=== PATIENT | female | born 1960 | race Hispanic/Latino ===

== ENCOUNTER 2016-07-10 11:55 | Emergency (ER) | payer OTHER ==
[2016-07-10 12:04] VITALS: BMI 23.4
[2016-07-10 12:08] VITALS: BP 154/92; RESP 16; TEMP 98
[2016-07-10] MEDS ORDERED: Oxycodone/Acetaminophen 5/325 mg Tab PO STA (12:26)
--- NOTE | 2016-07-10 12:32 | ED PDOC ---
Arrival/HPI - General Historian: Patient - General Chief Complaint: Lower Extremity Problem/Injury Time Seen by Provider: 07/10/16 12:20 - History of Present Illness Narrative History of Present Illness (Text): 07/10/16 12:29 55 y/o female, pmh including lt. posterior hsieh cyst, post menopausal, nkda, c/ o lt. hsieh cyst pain x 3 days. PT. stated that she has this pain started about 3 days ago, went to the [facility] which the sonogram report (she has it in the ER) show lt. knee hsieh cyst, discharge home with the meloxicom which stated that it's not improving much. Aching pain, aggravated by the lt. knee stretching, no numbness or tingling, no palpitation, no rash, no abdominal pain, no palpitation, no other medical or psychological complaints. (Kirk Phillips ) Past Medical History - Provider Review Nursing Documentation Reviewed: Yes - Infectious Disease Hx of Infectious Diseases: None - Cardiac Hx Cardiac Disorders: No - Pulmonary Hx Respiratory Disorders: No - Neurological Hx Neurological Disorder: No - HEENT Hx HEENT Disorder: No - Renal Hx Renal Disorder: No - Endocrine/Metabolic Hx Endocrine Disorders: No - Hematological/Oncological Hx Blood Disorders: No - Integumentary Hx Dermatological Disorder: No - Musculoskeletal/Rheumatological Hx Musculoskeletal Disorders: Yes Hx Arthritis: Yes - Gastrointestinal Hx Gastrointestinal Disorders: No - Genitourinary/Gynecological Hx Genitourinary Disorders: No - Psychiatric Hx Psychophysiologic Disorder: Yes Hx Depression: Yes Hx Physical Abuse: No Hx Substance Use: No - Surgical History Hx Orthopedic Surgery: Yes Hx Tubal Ligation: Yes - Anesthesia Hx Anesthesia: No - Suicidal Assessment Feels Threatened In Home Enviroment: No Family/Social History - Physician Review Nursing Documentation Reviewed: Yes Family/Social History: Unknown Family HX Smoking Status: Never Smoked Hx Alcohol Use: No Hx Substance Use: No Hx Substance Use Treatment: No Allergies/Home Meds Allergies/Adverse Reactions: Allergies No Known Allergies Allergy (Verified 07/10/16 12:04) Home Medications: Home Meds Medication Instructions Recorded Confirmed Meloxicam [Meloxicam] 7.5 mg PO BID 07/10/16 07/10/16 Risperidone [Risperdal] 1 tab PO .MORNING 07/10/16 07/10/16 Risperidone [Risperdal] 2 tab PO HS 07/10/16 07/10/16 Review of Systems - Review of Systems Constitutional: absent: Fatigue, Fevers Eyes: absent: Vision Changes ENT: absent: Hearing Changes Respiratory: absent: Cough, Sputum Cardiovascular: absent: Chest Pain, Palpitations Musculoskeletal: Arthralgias. absent: Back Pain, Neck Pain, Joint Swelling, Myalgias Skin: absent: Rash, Pruritis, Skin Lesions Neurological: absent: Headache, Dizziness, Focal Weakness Psychiatric: absent: Anxiety, Depression, Suicidal Ideation Physical Exam Vital Signs Reviewed: Yes Temperature: Afebrile Blood Pressure: Hypertensive Pulse: Tachycardic Respiratory Rate: Normal Appearance: Positive for: Well-Appearing, Non-Toxic, Comfortable Pain Distress: Moderate Mental Status: Positive for: Alert and Oriented X 3 - Systems Exam Head: Present: Atraumatic, Normocephalic Pupils: Present: PERRL Extroacular Muscles: Present: EOMI Conjunctiva: Present: Normal Mouth: Present: Moist Mucous Membranes Neck: Present: Normal Range of Motion Respiratory/Chest: Present: Clear to Auscultation, Good Air Exchange. No: Respiratory Distress, Accessory Muscle Use Cardiovascular: Present: Regular Rate and Rhythm, Normal S1, S2. No: Murmurs Abdomen: Present: Normal Bowel Sounds. No: Tenderness, Distention, Peritoneal Signs Back: Present: Normal Inspection Upper Extremity: Present: Normal Inspection. No: Cyanosis, Edema Lower Extremity: Present: Normal Inspection, Other (Lt. lower extremity: no tenderness or swelling, mild +ttp on the posterior aspect of the popliteal fossa , negative ashley and galicia signs, no joint laxity, FROM without limitation, sensation intact, motor 5/5, +DPPT pulses, capillary refill< 2 seconds, neurovascular intact. ). No: Edema Neurological: Present: GCS=15, CN II-XII Intact, Speech Normal Skin: Present: Warm, Dry, Normal Color. No: Rashes Psychiatric: Present: Alert, Oriented x 3, Normal Insight, Normal Concentration Medical Decision Making ED Course and Treatment: 07/10/16 12:33 -Toradol IM/percocet -Lt. knee janice wrap and crutches, no indication of the repeat DVT study as the source of the problem already diagnosed as lt. knee hsieh cyst. -I reviewed [facility] show the patient has over 2 times of narcotic prescription and the patient will need pain management or orthopedic. -Discharge home with naproxen, discontinue the meloxicom, janice wrap, crutches, please see your own orthopedic Dr. Royce Sanchez and your own pmd within 2 days, return to the ER for any new or worsening signs or symptoms. (Kirk Phillips) I was available for consultation during PA evaluation. The chart was reviewed by me, and I agree with disposition. The documented history was done by the physician puff iron operator. The documented physical exam was done by the physician puff iron operator. The documented procedures were done by the physician puff iron operator. ( Tyrese Gonsalez) - Medication Orders Current Medication Orders: Discontinued Medications Ketorolac Tromethamine (Toradol) 60 mg IM STAT STA Stop: 07/10/16 12:27 Last Admin: 07/10/16 12:39 Dose: 60 mg Oxycodone/Acetaminophen (Percocet 5/325 Mg Tab) 1 tab PO STAT STA Stop: 07/10/16 12:27 Last Admin: 07/10/16 12:39 Dose: 1 tab - PA / CERTIFIED EXECUTIVE CHEF / Resident Statement / has reviewed & agrees with the documentation as recorded. Disposition/Present on Arrival - Present on Arrival Any Indicators Present on Arrival: No History of DVT/PE: No History of Uncontrolled Diabetes: No Urinary Catheter: No History of Decub. Ulcer: No History Surgical Site Infection Following: None - Disposition Have Diagnosis and Disposition been Completed?: Yes Disposition Time: 12:36 Patient Plan: Discharge - Disposition Diagnosis: Hsieh's cyst of knee Disposition: HOME/ ROUTINE Condition: GOOD Additional Instructions: Discharge home with naproxen, discontinue the meloxicom, janice wrap, crutches, please see your own orthopedic Dr. Royce Sanchez and your own pmd within 2 days, return to the ER for any new or worsening signs or symptoms. Prescriptions: Naproxen 500 mg PO BID PRN #20 tab PRN Reason: Other Referrals: Royce Mccord DO [Staff Provider] - Follow up with primary [facility] [place] [Outside] - Follow up with primary Forms: [facility] [employer] ([place]), WORK NOTE
[2016-07-10 13:19] VITALS: PULSE 92; O2SAT 98
== END 2016-07-10 13:10 | disposition home or self-care (01) ==
LOC: ED 11:55
DX: M71.22 Synovial cyst of popliteal space [Baker], left knee (principal)
CPT/HCPCS: 96372; 99283; J1885

== ENCOUNTER 2016-07-20 16:31 | Emergency (ER) | payer OTHER ==
[2016-07-20 16:42] VITALS: BMI 25.0
--- NOTE | 2016-07-20 17:28 | ED PDOC ---
Arrival/HPI - General Historian: Patient <Carissa Willingham - Last Filed: 07/21/16 01:19> <Dwight Henson - Last Filed: 07/21/16 05:44> <Julio Leal - Last Filed: 07/21/16 18:59> <WilliejoeyChin - Last Filed: 07/25/16 21:09> - General Chief Complaint: Psychiatric Evaluation Time Seen by Provider: 07/20/16 16:48 - History of Present Illness Narrative History of Present Illness (Text): 07/20/16 17:26 55yr old female presents today sent in by [facility] for depression , anxiety, irritability and bizarre behavior and delusional thinking. pt denies cp or sob. no vomiting/diarrhea. admits to feeling depressed. states she is angry that she has to be in the hospital. pt denies SI at present time. no dizziness or weakness. Pt c/o chronic left leg pain behind the knee. denies trauma or injury. pt states she has known "lump" behind the knee. denies any other complaints. (Carissa Willingham) Past Medical History - Provider Review Nursing Documentation Reviewed: Yes - Travel History Have you recently traveled outside [place] w/in the past 3 mons?: No - Infectious Disease Hx of Infectious Diseases: None - Tetanus Immunization Tetanus Immunization: Unknown - Cardiac Hx Cardiac Disorders: No - Pulmonary Hx Respiratory Disorders: No - Neurological Hx Neurological Disorder: No - HEENT Hx HEENT Disorder: No - Renal Hx Renal Disorder: No - Endocrine/Metabolic Hx Endocrine Disorders: No - Hematological/Oncological Hx Blood Disorders: No - Integumentary Hx Dermatological Disorder: No - Musculoskeletal/Rheumatological Hx Musculoskeletal Disorders: Yes Hx Arthritis: Yes - Gastrointestinal Hx Gastrointestinal Disorders: No - Genitourinary/Gynecological Hx Genitourinary Disorders: No - Psychiatric Hx Psychophysiologic Disorder: Yes Hx Depression: Yes Hx Physical Abuse: No Hx Substance Use: No - Surgical History Hx Orthopedic Surgery: Yes Hx Tubal Ligation: Yes - Anesthesia Hx Anesthesia: No - Suicidal Assessment Feels Threatened In Home Enviroment: No <Carissa Willingham - Last Filed: 07/21/16 01:19> Family/Social History - Physician Review Nursing Documentation Reviewed: Yes Family/Social History: Unknown Family HX Smoking Status: Never Smoked Hx Alcohol Use: No Hx Substance Use: No Hx Substance Use Treatment: No <Carissa Willingham - Last Filed: 07/21/16 01:19> Allergies/Home Meds <Carissa Willingham - Last Filed: 07/21/16 01:19> <SixtoDwight - Last Filed: 07/21/16 05:44> <Julio Leal - Last Filed: 07/21/16 18:59> <Chin Adkins - Last Filed: 07/25/16 21:09> Allergies/Adverse Reactions: Allergies No Known Allergies Allergy (Verified 07/20/16 16:42) Home Medications: Home Meds Medication Instructions Recorded Confirmed Unobtainable 07/20/16 07/20/16 Review of Systems - Review of Systems Constitutional: absent: Fatigue, Fevers Respiratory: absent: SOB, Cough Cardiovascular: absent: Chest Pain, Palpitations Gastrointestinal: absent: Abdominal Pain, Nausea, Vomiting Genitourinary Female: absent: Dysuria Musculoskeletal: Arthralgias (left leg pain) Skin: absent: Rash, Pruritis Neurological: absent: Headache, Dizziness <Carissa Willingham - Last Filed: 07/21/16 01:19> Physical Exam Vital Signs Reviewed: Yes Temperature: Afebrile Blood Pressure: Normal Pulse: Regular Respiratory Rate: Normal Appearance: Positive for: Well-Appearing, Non-Toxic, Comfortable Pain Distress: None Mental Status: Positive for: Alert and Oriented X 3, Agitated - Systems Exam Head: Present: Atraumatic Mouth: Present: Moist Mucous Membranes Neck: Present: Normal Range of Motion Respiratory/Chest: Present: Clear to Auscultation, Good Air Exchange. No: Respiratory Distress, Accessory Muscle Use Cardiovascular: Present: Regular Rate and Rhythm, Normal S1, S2. No: Murmurs Abdomen: Present: Normal Bowel Sounds. No: Tenderness, Distention, Peritoneal Signs Upper Extremity: Present: Normal Inspection Lower Extremity: Present: NORMAL PULSES, Normal ROM, Neurovascularly Intact, Capillary Refill < 2 s. No: CALF TENDERNESS, Tenderness, Erythema, Deformity Neurological: Present: GCS=15, Speech Normal Skin: Present: Warm, Dry, Normal Color. No: Rashes Psychiatric: Present: Alert, Oriented x 3 <Carissa Willingham - Last Filed: 07/21/16 01:19> Medical Decision Making <Carissa Willingham - Last Filed: 07/21/16 01:19> - RAD Interpretation Solar Electric/Photovoltaic Installer: ED Physician <Dwight Henson - Last Filed: 07/21/16 05:44> <Julio Leal - Last Filed: 07/21/16 18:59> <Chin Adkins - Last Filed: 07/25/16 21:09> ED Course and Treatment: 07/20/16 17:33 Patient is nontoxic well-appearing in no distress vital signs are stable. CBC hgb:9.9 CMP WNL Tylenol WNL Salicylate WNL Alcohol level WNL Urine drug screen: + benzos venous duplex; left leg; no DVT; + bakers cyst. UA; wnl cxr: wnl ekg normal sinus rhythm at [address] elevations normal intervals pt is medically cleared for PES evaluation/admission and transfer. Patient was seen and evaluated by PES screener: wen; pt will need [facility] screening. patients family member spoke with patient and patient has decided to sign voluntarily; i spoke with clay PES screener; she will see patient at bedside. clay saw patient at bedside; pt wants to be transferred psychiatrically to another facility preferably [facility]. (Carissa Willingham) 07/21/16 18:59 Patient ambulatory. No respiratory distress. Cooperative. Alert. No pain expressed. Has been reassessed by PES, awaiting transfer and disposition pending approval for transfer to facility of patient's request. (Julio Leal) - Lab Interpretations Lab Results: 07/20/16 17:00 07/20/16 17:00 Lab Results 07/20/16 17:00: WBC 5.5, RBC 3.71, Hgb 9.9 L, Hct 30.1 L, MCV 81.1, MCH 26.7, MCHC 32.9, RDW 13.8, Plt Count 346, MPV 11.0, Gran % 58.7, Lymph % (Auto) 31.6, [place] % (Auto) 8.0 H, Eos % (Auto) 1.5, Baso % (Auto) 0.2, Gran # 3.22, Lymph # 1.7, [place] # 0.4, Eos # 0.1, Baso # 0.01 07/20/16 17:00: Alcohol, Quantitative < 10 05/22/17 17:00: Salicylates < 1 L, Acetaminophen < 10.0 L 07/20/16 17:00: Urine Opiates Screen Negative, Urine Methadone Screen Negative, Ur Barbiturates Screen Negative, Ur Phencyclidine Scrn Negative, Ur Amphetamines Screen Negative, U Benzodiazepines Scrn Positive H, U Oth Cocaine Metabols Negative, U Cannabinoids Screen Negative 07/20/16 17:00: Sodium 138, Potassium 3.8, Chloride 101, Carbon Dioxide 28, Anion Gap 13, BUN 14, Creatinine 0.6, Est GFR ( Amer) > 60, Est GFR (Non- Af Amer) > 60, Random Glucose 93, Calcium 8.9, Total Bilirubin 0.4, AST 19, ALT 21, Alkaline Phosphatase 96, Total Protein 7.0, Albumin 3.5, Globulin 3.5, Albumin/Globulin Ratio 1.0 L 07/20/16 17:00: Urine Color Yellow, Urine Appearance Sl cloudy, Urine pH 8.0, Ur Specific [place] 1.020, Urine Protein Negative, Urine Glucose (UA) Negative, Urine Ketones Negative, Urine Blood Negative, Urine Nitrate Negative, Urine Bilirubin Negative, Urine Urobilinogen 1.0 H, Ur Leukocyte Esterase Negative, Urine HCG, Qual Negative - RAD Interpretation Narrative RAD Interpretations (Text): 07/21/16 05:44 CXR- No acute process (Dwight Henson) Radiology Orders: 07/20/16 16:48 CHEST PORTABLE [RAD] Stat 07/20/16 17:31 DUPLEX LOWER EXTRM VEIN LEFT [US] Stat - Medication Orders Current Medication Orders: Discontinued Medications Acetaminophen (Tylenol 325mg Tab) 650 mg PO STAT STA Stop: 07/22/16 02:59 Last Admin: 07/22/16 03:14 Dose: 650 mg Risperidone (Risperdal Tab) 1 mg PO STAT STA PRN Reason: Protocol Stop: 07/21/16 22:18 Last Admin: 07/21/16 22:24 Dose: 1 mg Risperidone (Risperdal Tab) 1 mg PO [facility] CAROLINE PRN Reason: Protocol Last Admin: 07/22/16 10:28 Dose: 1 mg - PA / MEASURING MACHINE TENDER / Resident Statement SIOMARA has reviewed & agrees with the documentation as recorded. SIOMARA has examined the patient and agrees with the treatment plan. <Dwight Henson - Last Filed: 07/21/16 05:44> Disposition/Present on Arrival - Present on Arrival Any Indicators Present on Arrival: No History of DVT/PE: No History of Uncontrolled Diabetes: No Urinary Catheter: No History of Decub. Ulcer: No History Surgical Site Infection Following: None - Disposition Have Diagnosis and Disposition been Completed?: Yes Disposition Time: : <Carissa Willingham - Last Filed: 07/21/16 01:19> <Dwight Henson - Last Filed: 07/21/16 05:44> <Julio Leal - Last Filed: 07/21/16 18:59> <Chin Adkins - Last Filed: 07/25/16 21:09> - Disposition Diagnosis: Depression Disposition: AGAINST MEDICAL ADVICE Condition: FAIR Referrals: PCP,NO [Primary Care Provider] - Follow up with primary Karoline Arguelles MD [Staff Provider] - Follow up with primary
[2016-07-20 17:38] LABS: ADD MANUAL DIFF? NO
[2016-07-20 17:50] LABS: URINE BILIRUBIN NEGATIVE (NEGATIVE); URINE BLOOD NEGATIVE (NEGATIVE); URINE GLUCOSE (UA) NEGATIVE (NEGATIVE); URINE KETONE NEGATIVE (NEGATIVE); URINE LEUKOCYTE ESTERASE NEGATIVE Leu/uL (NEGATIVE); URINE PROTEIN NEGATIVE mg/dL (<30 mg/dL)
[2016-07-20 17:54] LABS: BASO # 0.01 K/mm3 (0.0-2.0); BASO % 0.2 % (0.0-3.0); EOS # 0.1 (0.0-0.7); EOS % 1.5 % (1.5-5.0); GRAN # 3.22 (1.4-6.5); GRAN % 58.7 % (50.0-68.0); HEMATOCRIT 30.1 % (36.0-48.0); LYMPH # 1.7 (1.2-3.4); LYMPH % 31.6 % (22.0-35.0); MEAN CELL VOLUME 81.1 fL (80.0-105.0); MEAN CORPUSCULAR HEMOGLOBIN 26.7 pg (25.0-35.0); MEAN CORPUSCULAR HGB CONC 32.9 g/dl (31.0-37.0); MONO # 0.4 (0.1-0.6); PLATELET COUNT 346 10^3/uL (120.0-450.0); RED CELL DISTRIBUTION WIDTH 13.8 % (11.5-14.5); WHITE BLOOD COUNT 5.5 10^3/ul (4.5-11.0)
[2016-07-20 17:58] LABS: URINE APPEARANCE SL CLOUDY (CLEAR); URINE COLOR YELLOW (YELLOW)
[2016-07-20 18:14] LABS: ALKALINE PHOSPHATASE 96 U/L (38-133); ALT/SGPT 21 U/L (7-56); AST/SGOT 19 U/L (15-39); BILIRUBIN,TOTAL 0.4 mg/dL (0.2-1.3); BLOOD UREA NITROGEN 14 mg/dL (7-21); CALCIUM 8.9 mg/dL (8.4-10.5); CARBON DIOXIDE 28 mmol/L (21-33); CHLORIDE 101 mmol/L (98-107); GFR AFRICAN-AMERICAN > 60; GLUCOSE,RANDOM 93 mg/dL (70-110); POTASSIUM 3.8 mmol/L (3.6-5.0); SODIUM 138 mmol/L (132-148)
--- NOTE | 2016-07-20 20:03 | CARD ---
APPROVED REPORT EKG Measurement Heart [id number] <Conclusion> Normal sinus rhythm Minimal voltage criteria for LVH, may be normal variant Borderline ECG
--- NOTE | 2016-07-21 08:16 | RAD ---
HISTORY: pes eval COMPARISON: 03/14/2012 FINDINGS: LUNGS: No active pulmonary disease. PLEURA: No significant pleural effusion identified, no pneumothorax apparent. CARDIOVASCULAR: Normal. OSSEOUS STRUCTURES: No significant abnormalities. VISUALIZED UPPER ABDOMEN: Normal. OTHER FINDINGS: None. IMPRESSION: No active disease.
--- NOTE | 2016-07-21 09:06 | US ---
PROCEDURE: Left lower extremity venous US HISTORY: Leg pain and swelling. Evaluate for DVT. PHYSICIAN(S): Frank Arenas MD. TECHNIQUE: Duplex sonography and color-flow Doppler with graded compression were used to evaluate the deep venous system of the left lower extremity. FINDINGS: The visualized deep venous system of the left lower extremity is sonographically normal and compressible. Normal wave forms and augmentation are seen. There is no sonographic evidence for deep venous thrombosis in the visualized segments of the left lower extremity. There is a large complex 2.9 x 7.1 cm lobulated fluid collection left popliteal fossa, consistent with a Hsieh cyst. IMPRESSION: 1. No sonographic evidence for deep venous thrombosis in the visualized segments of the left lower extremity.
--- NOTE | 2016-07-22 12:17 | CON ---
DATE: 07/22/2016 HISTORY OF PRESENT ILLNESS: Shortly, the patient is a 55-year-old female with previous psychiatric h istory of bipolar disorder versus schizoaffective disorder, multiple admissions into [facility] under involuntary commitment. The patient was brought in for evaluation of bizarre and di sorganized behavior. The patient was evaluated by [facility] which was recommended b y this teletypewriter installer yesterday. The patient was accepted and at present moment, the patient is waiting for a bed to be available. The patient got 1 dose of Risperdal 1 mg yesterday. The patient was seen tonola prajapati at the morning time in the Emergency Room. The patient presented to be calm. The patient had tho ught process to be disorganized. The patient had feeling she has stolen some police report which is not true. The patient presented to be disorganized, rapid speech and needs further evaluation and st abilization. The patient reported that she was on Risperdal before and she wants to continue that me dication. As per history, the patient had multiple admissions into [facility] and mo st recent was in 04/2016. VITAL SIGNS: This teletypewriter installer reviewed vital signs. Vital signs seem to be stable. Temperature 98, puls e is 84, blood pressure 138/79, respirations 16, oxygen saturation is 98. MEDICATIONS: Reviewed. The patient got Risperdal 1 mg yesterday at the evening time, slept well and this teletypewriter installer will initiate Risperdal 1 mg twice a day as of now. LABORATORY DATA: Reviewed. Chemistry reviewed. Urine reviewed. Toxicology positive for benzodiaze pines. MENTAL STATUS EXAMINATION: The patient presented to be alert, appears to be confused. Speech was ov er-productive, rambling. Mood described "I feel better." Affect was constricted. Thought process i s disorganized, tangential and circumstantial. Thought content: The patient obviously psychotic, di sorganized. Insight and judgment are very limited. Impulses are not predictable. IMPRESSION: History of schizoaffective disorder versus bipolar disorder with psychotic symptoms. PLAN: The patient was screened by [facility] and waiting for bed to be available to be transferred there. Risperdal was started at 1 mg twice a day. The patient allowed to talk to her sister who is next to the patient. Sister was appreciative and she said patient was on Risperdal be fore and she tolerated that medication well. The patient and family are aware about plan for now, wa s appreciative and all questions were answered. We will follow up and advise accordingly. Karoline Arguelles MD cc: [id number] TT: 07/22/2016 12:16:26 Confirmation # [id number] Dictation # [id number] tn
[2016-07-22 17:11] VITALS: BP 115/54; PULSE 78; RESP 18; TEMP 98.2; O2SAT 98
== END 2016-07-22 17:15 | disposition left against medical advice (07) ==
LOC: ED 16:31
DX: F32.9 Major depressive disorder, single episode, unspecified (principal); F41.9 Anxiety disorder, unspecified

== ENCOUNTER 2016-10-15 11:32 | Emergency (ER) | payer OTHER ==
--- NOTE | 2016-10-15 11:55 | ED PDOC ---
Arrival/HPI - General Time Seen by Provider: 10/15/16 11:54 Historian: Patient - History of Present Illness Narrative History of Present Illness (Text): 10/15/16 11:55 55 y/o female, pmh including rich cyst, nkda, c/o rt. posterior knee and calf pain started this morning with no fall or trauma. Pt. stated that she feels the rt. posterior calf pain that radiating to the rt. posterior knee, no redness , no fever or chills, no numbness or tingling, no calf pain, no urinary symptoms , no other medical or psychological complaints. Past Medical History - Provider Review Nursing Documentation Reviewed: Yes - Infectious Disease Hx of Infectious Diseases: None - Tetanus Immunization Tetanus Immunization: Unknown - Cardiac Hx Cardiac Disorders: No - Pulmonary Hx Respiratory Disorders: No - Neurological Hx Neurological Disorder: No - HEENT Hx HEENT Disorder: No - Renal Hx Renal Disorder: No - Endocrine/Metabolic Hx Endocrine Disorders: No - Hematological/Oncological Hx Blood Disorders: No - Integumentary Hx Dermatological Disorder: No - Musculoskeletal/Rheumatological Hx Musculoskeletal Disorders: Yes Hx Arthritis: Yes - Gastrointestinal Hx Gastrointestinal Disorders: No - Genitourinary/Gynecological Hx Genitourinary Disorders: No - Psychiatric Hx Psychophysiologic Disorder: Yes Hx Depression: Yes Hx Physical Abuse: No Hx Substance Use: No - Surgical History Hx Orthopedic Surgery: Yes Hx Tubal Ligation: Yes - Anesthesia Hx Anesthesia: No - Suicidal Assessment Feels Threatened In Home Enviroment: No Family/Social History - Physician Review Nursing Documentation Reviewed: Yes Family/Social History: Unknown Family HX Smoking Status: Never Smoked Hx Alcohol Use: No Hx Substance Use: No Hx Substance Use Treatment: No Allergies/Home Meds Allergies/Adverse Reactions: Allergies No Known Allergies Allergy (Verified 07/20/16 16:42) Review of Systems - Review of Systems Constitutional: absent: Fatigue, Fevers Eyes: absent: Vision Changes ENT: absent: Hearing Changes Respiratory: absent: SOB, Cough Cardiovascular: absent: Chest Pain Gastrointestinal: absent: Abdominal Pain, Nausea, Vomiting Musculoskeletal: Arthralgias, Myalgias Skin: absent: Rash, Pruritis, Skin Lesions Neurological: absent: Headache Physical Exam Vital Signs Reviewed: Yes Vital Signs Temp Pulse Resp BP Pulse Ox 10/15/16 13:09 98.7 F 81 19 109/73 100 10/15/16 12:07 98.2 F 92 H 18 99/68 L 98 Temperature: Afebrile Pulse: Regular Respiratory Rate: Normal Appearance: Positive for: Well-Appearing, Non-Toxic, Comfortable Pain Distress: Moderate Mental Status: Positive for: Alert and Oriented X 3 - Systems Exam Head: Present: Atraumatic, Normocephalic Pupils: Present: PERRL Extroacular Muscles: Present: EOMI Conjunctiva: Present: Normal Mouth: Present: Moist Mucous Membranes Neck: Present: Normal Range of Motion Respiratory/Chest: Present: Clear to Auscultation, Good Air Exchange. No: Respiratory Distress, Accessory Muscle Use Cardiovascular: Present: Regular Rate and Rhythm, Normal S1, S2. No: Murmurs Abdomen: Present: Normal Bowel Sounds. No: Tenderness, Distention, Peritoneal Signs Back: Present: Normal Inspection Upper Extremity: Present: Normal Inspection. No: Cyanosis, Edema Lower Extremity: Present: Normal Inspection, Other (RLE: mild +ttp on the proximal calf with mild swelling, negative ashley and galicia signs, FROM without limitation, sensation intact, motor 5/5, +DPPT pulses, capillary refill < 2 seconds, neurovascular intact. ). No: Edema Neurological: Present: GCS=15, Speech Normal, Motor Func Grossly Intact, Gait Normal, Memory Normal Skin: Present: Warm, Dry, Normal Color. No: Rashes Psychiatric: Present: Alert, Oriented x 3, Normal Insight, Normal Concentration Medical Decision Making ED Course and Treatment: 10/15/16 12:32 -RLE venuous doppler -Indocin 10/15/16 13:59 -RLE Venuous Doppler: as per preliminary, no acute DVT -I offered further laboratory and radiology testing, pt. declined and wanna follow up with her own pmd. -janice wrap applied with neurovascular intact. I suggest non-weight bearing with crutches/partial weight bearing with cane, pt. refused. -Discharge home with indomethacin, janice wrap, follow up with your own pmd and orthopedic within 2 days, return to the ER for any new or worsening signs or symptoms. - RAD Interpretation Radiology Orders: 10/15/16 12:29 DUPLEX LOWER EXTRM VEIN RIGHT [US] Stat RLE Venuous Doppler: as per preliminary, no acute DVT Kennel Hand: Radiologist - Medication Orders Current Medication Orders: Discontinued Medications Indomethacin (Indocin) 50 mg PO STAT STA Stop: 10/15/16 12:31 Last Admin: 10/15/16 12:56 Dose: 50 mg - PA / CAMPAIGN COORDINATOR / Resident Statement MD/DO has reviewed & agrees with the documentation as recorded. Disposition/Present on Arrival - Present on Arrival Any Indicators Present on Arrival: No History of DVT/PE: No History of Uncontrolled Diabetes: No Urinary Catheter: No History of Decub. Ulcer: No History Surgical Site Infection Following: None - Disposition Have Diagnosis and Disposition been Completed?: Yes Diagnosis: Calf pain, Arthralgia Disposition: HOME/ ROUTINE Disposition Time: 12:32 Patient Plan: Discharge Condition: GOOD Additional Instructions: -Discharge home with indomethacin, janice wrap, follow up with your own pmd and orthopedic within 2 days, return to the ER for any new or worsening signs or symptoms. Prescriptions: Indomethacin [Indocin] 50 mg PO TID PRN #30 cap PRN Reason: Other Referrals: Kimberly HORTON,Yo Schreiber MD [Primary Care Provider] - Follow up with primary Nathanael Yen MD [Staff Provider] - Follow up with primary Forms: WORK NOTE
[2016-10-15 12:05] VITALS: BMI 25.4
[2016-10-15 13:10] VITALS: BP 109/73; PULSE 81; RESP 19; TEMP 98.7; O2SAT 100
--- NOTE | 2016-10-15 14:20 | US ---
PROCEDURE: Right lower extremity venous US HISTORY: Leg pain and swelling. Evaluate for DVT. PHYSICIAN(S): Frank Arenas M.D. TECHNIQUE: Duplex sonography and color-flow Doppler with graded compression were used to evaluate the deep venous system of the right lower extremity. FINDINGS: The visualized deep venous system of the right lower extremity is sonographically normal and compressible. Normal waveforms and augmentation are seen. There is no sonographic evidence for deep venous thrombosis in the visualized segments of the right lower extremity. IMPRESSION: 1. No sonographic evidence for deep venous thrombosis in the visualized segments of the right lower extremity.
== END 2016-10-15 14:10 | disposition home or self-care (01) ==
LOC: ED 11:32
DX: M79.661 Pain in right lower leg (principal); M25.561 Pain in right knee

== ENCOUNTER 2018-05-03 08:57 | Inpatient (IN) | payer OTHER ==
[2018-05-03 09:05] VITALS: BMI 27.3
[2018-05-03] MEDS ORDERED: Morphine 2 mg/ml ISec IVP STA ×2 (09:40→11:29)
[2018-05-03] MEDS ORDERED: Morphine 2 mg/ml ISec IM STA (09:50)
--- NOTE | 2018-05-03 10:48 | RAD ---
Date of service: 05/03/2018 PROCEDURE: Right Ankle Radiographs. HISTORY: ankle pain/deformity s/p fall COMPARISON: None available. FINDINGS: BONES: Vertical nondisplaced fracture medial malleolus/distal tibia. Posterior malleolar fracture also noted, mildly displaced. Oblique distal fibular fracture noted above the level of the plafond and. JOINTS: Normal. No osteoarthritis. Ankle mortise maintained. Talar dome intact SOFT TISSUES: Normal. OTHER FINDINGS: None. IMPRESSION: Medial malleolar and posterior malleolar fractures. Distal fibular fracture.
--- NOTE | 2018-05-03 11:20 | ED PDOC ---
Arrival/HPI - General Chief Complaint: Lower Extremity Problem/Injury Time Seen by Provider: 05/03/18 09:16 Historian: Patient - History of Present Illness Narrative History of Present Illness (Text): 05/03/18 11:24 57-year-old female presents today with right ankle pain and deformity status post fall. Patient states she slipped on black ice twisting the ankle. Patient states she was unable to ambulate after the injury. Patient is complaining of pain along the anterior aspect of the ankle and lateral aspect of the ankle. She denies numbness weakness or tingling in the extremity. She denies proximal fibular pain. No medications have been taken for pain at home. No other complaints Past Medical History - Provider Review Nursing Documentation Reviewed: Yes - Travel History Have you recently traveled outside [place] w/in the past 3 mons?: No - Infectious Disease Hx of Infectious Diseases: None - Tetanus Immunization Tetanus Immunization: Unknown - Cardiac Hx Cardiac Disorders: Yes - Pulmonary Hx Respiratory Disorders: No - Neurological Hx Neurological Disorder: No - HEENT Hx HEENT Disorder: No - Renal Hx Renal Disorder: No - Endocrine/Metabolic Hx Endocrine Disorders: No - Hematological/Oncological Hx Blood Disorders: No - Integumentary Hx Dermatological Disorder: No - Musculoskeletal/Rheumatological Hx Musculoskeletal Disorders: Yes Hx Arthritis: Yes - Gastrointestinal Hx Gastrointestinal Disorders: No - Genitourinary/Gynecological Hx Genitourinary Disorders: No - Psychiatric Hx Psychophysiologic Disorder: Yes Hx Depression: Yes Hx Substance Use: No - Surgical History Hx Orthopedic Surgery: Yes (L ankle surgery) Hx Tubal Ligation: Yes - Anesthesia Hx Anesthesia: Yes Hx Anesthesia Reactions: No Hx Malignant Hyperthermia: No - Suicidal Assessment Feels Threatened In Home Enviroment: No Family/Social History - Physician Review Nursing Documentation Reviewed: Yes Family/Social History: Unknown Family HX Smoking Status: Never Smoked Hx Alcohol Use: No Hx Substance Use: No Hx Substance Use Treatment: No Allergies/Home Meds Allergies/Adverse Reactions: Allergies No Known Allergies Allergy (Verified 05/03/18 09:06) Home Medications: Home Meds Medication Instructions Recorded Confirmed Gabapentin [Neurontin] 100 mg PO DAILY 05/03/18 05/03/18 Indomethacin [Indocin] 50 mg PO TID PRN 05/03/18 05/03/18 Review of Systems - Review of Systems Constitutional: absent: Fatigue, Fevers Respiratory: absent: SOB, Cough Cardiovascular: absent: Chest Pain, Palpitations Gastrointestinal: absent: Abdominal Pain, Nausea, Vomiting Genitourinary Female: absent: Dysuria Musculoskeletal: Arthralgias. absent: Back Pain, Neck Pain Skin: absent: Rash, Pruritis Neurological: absent: Headache, Dizziness Psychiatric: absent: Anxiety, Depression, Suicidal Ideation Physical Exam Vital Signs Reviewed: Yes Vital Signs Temp Pulse Resp BP Pulse Ox 05/03/18 10:51 59 L 16 122/73 98 05/03/18 08:58 97.5 F L 62 16 114/57 L 99 Temperature: Afebrile Blood Pressure: Normal Pulse: Regular Respiratory Rate: Normal Appearance: Positive for: Well-Appearing, Non-Toxic, Comfortable Pain Distress: None Mental Status: Positive for: Alert and Oriented X 3 - Systems Exam Head: Present: Atraumatic Respiratory/Chest: Present: Clear to Auscultation Cardiovascular: Present: Regular Rate and Rhythm Lower Extremity: Present: NORMAL PULSES, Tenderness (right ankle; + ttp over anterior, lateral and medial aspects of ankle; sensation and distal pulses intact. limited ROM of ankle. cap refill <2. ), Swelling, Deformity, Neurovascularly Intact, Capillary Refill < 2 s. No: Normal Inspection, CALF TENDERNESS, Normal ROM Neurological: Present: GCS=15, Speech Normal Skin: Present: Warm, Dry, Normal Color. No: Rashes Psychiatric: Present: Alert, Oriented x 3 Medical Decision Making ED Course and Treatment: Patient nontoxic well-appearing in no distress with stable vital signs with right ankle deformity s/p slip and fall. X-rays of the right ankle:FINDINGS: BONES: Vertical nondisplaced fracture medial malleolus/distal tibia. Posterior malleolar fracture also noted, mildly displaced. Oblique distal fibular fracture noted above the level of the plafond and. JOINTS: Normal. No osteoarthritis. Ankle mortise maintained. Talar dome intact SOFT TISSUES: Normal. OTHER FINDINGS: None. IMPRESSION: Medial malleolar and posterior malleolar fractures. Distal fibular fracture. pt given Morphine IM. 05/03/18 11:18 Patient seen and evaluated by Dr. Mccord at bedside. He is the patient's orthopedist. He advised placing the patient into a posterior short leg splint and keeping the patient n.p.o., CAT scan of the ankle and doing preop lab testing as he would like to do surgery today on the ankle. Patient placed in short leg posterior splint. Case discussed with Dr. Avalos. accepts admission morphine IVP given for pain. deny added pre-op tests ordered. EKG: NSR at 60b/m no st elevations cxr: wnl CT ankle; FINDINGS: There is a trimalleolar fracture without dislocation. There is a vertical fracture through the posterior malleolus. There are numerous small bony fragments. There is a vertically oriented fracture through the medial malleolus which is only minimally displaced. There is a comminuted displaced fracture of the lateral malleolus. The talar dome is intact. Small bone fragments can be seen in the ankle joint above the talar dome. There is extensive soft tissue swelling IMPRESSION: Trimalleolar fracture. See comment impression; trimalleolar ankle fracture admit observational status; med/surg Reassessment Condition: Re-examined, Improved - RAD Interpretation Radiology Orders: 05/03/18 09:41 ANKLE RIGHT 3 VIEWS ROUTINE [RAD] Stat 05/03/18 11:06 CHEST PORTABLE [RAD] Stat - Medication Orders Current Medication Orders: Discontinued Medications Morphine Sulfate (Morphine) 2 mg IM STAT STA Stop: 05/03/18 09:51 Last Admin: 05/03/18 10:06 Dose: 2 mg MAR Pain Assessment Document 05/03/18 10:06 KV (Rec: 05/03/18 10:06 [place] [facility] [place] Pain Reassessment Is this a pain reassessment? No IM Administration Charges Document 05/03/18 10:06 KV (Rec: 05/03/18 10:06 K[place] [facility] [place] Injection Site MAR Injection Site Right Deltoid Charges for Administration # of IM Administrations 1 Procedures - Splinting Location: right ankle Hand-Made Type: fiberglass Splint: short leg posterior splint Pre-Proc Neuro Vasc Exam: normal Post-Proc Neuro Vasc Exam: normal Disposition/Present on Arrival - Present on Arrival Any Indicators Present on Arrival: No History of DVT/PE: No History of Uncontrolled Diabetes: No Urinary Catheter: No History of Decub. Ulcer: No History Surgical Site Infection Following: None - Disposition Have Diagnosis and Disposition been Completed?: Yes Diagnosis: Trimalleolar fracture Disposition: HOSPITALIZED Disposition Time: 11:20 Patient Plan: Observation Patient Problems: Current Active Problems Problem Status Onset Trimalleolar fracture Acute Condition: FAIR
[2018-05-03] MEDS ORDERED: Sodium Chloride 0.9% 1,000 ML IV SCH (11:30)
[2018-05-03 11:47] LABS: BASO # 0.02 K/mm3 (0.0-2.0); BASO % 0.2 % (0.0-3.0); EOS # 0.1 (0.0-0.7); EOS % 1.1 % (1.5-5.0); HEMOGLOBIN 14.8 g/dL (12.0-16.0); LYMPH # 1.6 (1.2-3.4); MEAN CELL VOLUME 87.6 fl (80.0-105.0); MEAN CORPUSCULAR HEMOGLOBIN 28.7 pg (25.0-35.0); MEAN CORPUSCULAR HGB CONC 32.8 g/dl (31.0-37.0); MEAN PLATELET VOLUME 12.1 fl (7.0-11.0); MONO # 0.2 (0.1-0.6); MONO % 2.5 % (1.0-6.0); RBC 5.15 10^6/uL (3.5-6.1); RED CELL DISTRIBUTION WIDTH 13.4 % (11.5-14.5); WHITE BLOOD COUNT 9.7 10^3/uL (4.5-11.0)
[2018-05-03 11:53] LABS: ALB/GLOB RATIO 1.3 (1.1-1.8); ALT/SGPT 24 U/L (7-56); AST/SGOT 35 U/L (14-36); BLOOD UREA NITROGEN 19 mg/dL (7-21); CALCIUM 9.7 mg/dL (8.4-10.5); GFR NON-AFRICAN AMERICAN > 60
[2018-05-03 11:55] LABS: INR 1.08; PARTIAL THROMBOPLASTIN TIME 29.9 Seconds (26.9-38.3); PROTHROMBIN TIME 12.2 SECONDS (9.4-12.5)
--- NOTE | 2018-05-03 12:03 | RAD ---
Date of service: 05/03/2018 HISTORY: pre op COMPARISON: 07/20/2016 FINDINGS: LUNGS: No active pulmonary disease. PLEURA: No significant pleural effusion identified, no pneumothorax apparent. CARDIOVASCULAR: No aortic atherosclerotic calcification present. Normal cardiac size. No pulmonary vascular congestion. OSSEOUS STRUCTURES: No significant abnormalities. VISUALIZED UPPER ABDOMEN: Normal. OTHER FINDINGS: None. IMPRESSION: No active disease.
--- NOTE | 2018-05-03 12:19 | CT ---
Date of service: 05/03/2018 PROCEDURE: CT of the right lower extremity without contrast HISTORY: ankle fracture COMPARISON: TECHNIQUE: Radiation dose: Total exam DLP = 337.4 mGy-cm. This CT exam was performed using one or more of the following dose reduction techniques: Automated exposure control, adjustment of the mA and/or kV according to patient size, and/or use of iterative reconstruction technique. FINDINGS: There is a trimalleolar fracture without dislocation. There is a vertical fracture through the posterior malleolus. There are numerous small bony fragments. There is a vertically oriented fracture through the medial malleolus which is only minimally displaced. There is a comminuted displaced fracture of the lateral malleolus. The talar dome is intact. Small bone fragments can be seen in the ankle joint above the talar dome. There is extensive soft tissue swelling IMPRESSION: Trimalleolar fracture. See comment
[2018-05-03] MEDS ORDERED: Pneumococcal 23-Valent Vaccine IM ONE (12:39)
[2018-05-03] MEDS ORDERED: Influenza Vaccine 60 mcg/0.5 mL SYR (4YR UP) IM ONE (12:39)
--- NOTE | 2018-05-03 18:10 | CARD ---
APPROVED REPORT Date of service: 05/03/2018 EKG Measurement Heart [id number] <Conclusion> Normal sinus rhythm Normal Electrocardiogram
[2018-05-03] MEDS ORDERED: HYDROmorphone 1 mg/ml ISec IVP PRN (18:42)
[2018-05-03] MEDS: Oxycodone/Acetaminophen 5/325 mg Tab PO PRN (20:00)
--- NOTE | 2018-05-03 21:06 | CON ---
DATE: 05/03/2018 ORTHOPEDIC CONSULTATION HISTORY OF PRESENT ILLNESS: Patient slipped and fell on the ice while she was carrying a 1-year-old baby and landed so as to protect the baby, she twisted her ankle. X-ray showed a trimalleolar fracture, right ankle with a long oblique fracture of the medial malleolus and the lateral malleolus and posterior malleolus and an intraarticular fracturing of the anterior tibial rim compatible with the Pilon type of fractures. Very swollen, so we are going to treat her with a compression dressing and delay surgery till the swelling goes down and plan to do an ORIF, hopefully Wednesday when the swelling goes down a little more. She will need an open reduction and internal fixation of medial and lateral malleolus and possible posterior malleolus and observation. We will try to get her home to her family as the x-ray shows a satisfactory position and as long as there is widening of the ankle mortise, but the talus is under the tibia. So we will continue elevation and she could probably go home tomorrow when she is cleared with crutches for nonweightbearing ambulation and also follow her in the office. We plan to do surgery on Wednesday. FINAL DIAGNOSIS: Trimalleolar fracture, right ankle with intraarticular fracture at the tibia distally compatible with a Pilon fracture. So we will get therapy on board so we can ambulate her with crutches nonweightbearing. I will follow her closely and hopefully send her home tomorrow so she could elevate her leg and then I will see her during the week. Royce Mccord DO
--- NOTE | 2018-05-03 22:44 | HP ---
DATE OF EXAM: 05/03/2018 HISTORY OF PRESENT ILLNESS: The patient is a 57-year-old known to me from office practice. The patient comes to my office once in a while for her aches and pain and knee arthritis. She was recently diagnosed with fibromyalgia; otherwise, she has no significant complaints. The patient states this morning, she got up and she got ready to go to work, when she came to sit in her truck she did not pay attention, but and she slipped on that and developed excruciating pain and she was unable to get up. The patient saw her right ankle is crooked. She was unable to put any pressure on that. Her family member called ambulance and she was brought to emergency room. She complained of pain in the right ankle. PAST MEDICAL HISTORY: There is no significant past medical disease other than history of fibromyalgia and generalized osteoarthritis. Does have history of depression and history of tubal ligation. ALLERGIES: SHE IS NOT ALLERGIC TO ANY MEDICATION. MEDICATIONS AT HOME: She is on indomethacin 50 mg three times a day as needed and gabapentin 100 mg daily. SOCIAL HISTORY: She lives with her family. Denies smoking or drinking alcohol. PHYSICAL EXAMINATION: GENERAL: She is awake, alert, oriented, and able to communicate. VITAL SIGNS: She is afebrile, pulse 67, respirations 16, and blood pressure 117/56. LUNGS: Bilateral fair airflow. No rhonchi or crackle. HEART: S1 and S2 audible. ABDOMEN: Soft and nontender. No rebound. No guarding. NEUROLOGIC: The patient is awake, alert, oriented, and able to communicate. Right foot is in the dressing. ASSESSMENT: 1. Status post fall. 2. Right ankle fracture. 3. History of generalized osteoarthritis. PLAN: The patient is medically cleared. She is going for open reduction and internal fixation. I will start her on analgesic. She is n.p.o. for now. Dr. Mccord will be doing surgery today. José Miguel Avalos MD
[2018-05-04] MEDS: Oxycodone/Acetaminophen 5/325 mg Tab PO PRN (09:57)
[2018-05-04 10:32] VITALS: BP 106/67; PULSE 66; RESP 16; TEMP 98.2; O2SAT 95
--- NOTE | 2018-05-05 02:42 | DS ---
HISTORY OF PRESENT ILLNESS: Patient is a 57-year-old who slipped and yesterday and sustained injury to the right ankle. She has trimalleolar fracture. She was supposed to be operated yesterday but because of the swelling, it was postponed. She is being discharged today as per Orthopedic and will be scheduled to have surgery done at [facility] on Wednesday. PHYSICAL EXAMINATION: GENERAL: She is awake, alert, oriented, and communicative. VITAL SIGNS: She is afebrile. Pulse 66, respirations 16, blood pressure 106/67. LUNGS: Bilateral fair airflow. No rhonchi or crackles. HEART: S1 and S2 audible. ABDOMEN: Soft and nontender. No rebound. No guarding. NEUROLOGIC: Patient is awake and alert, able to communicate. LABORATORY DATA: WBC is 9.7, hemoglobin 14.8, hematocrit 45.1, platelets 228. Chemistry; sodium 140, potassium 3.9, chloride 100, CO2 of 30, BUN 19, creatinine 0.5. Blood sugar of 87. ASSESSMENT: 1. Status post fall. 2. Trimalleolar right ankle fracture that is intraarticular fracture at the tibia distally. 3. Generalized osteoarthritis. PLAN: Patient is being discharged today. She will be given prescription of Percocet and she will followup in [facility] for open reduction and internal fixation for her trimalleolar fracture. José Miguel Avalos MD
--- NOTE | 2018-05-05 07:51 | DS ---
LOCATION: She is in room 516, bed 2. HOSPITAL COURSE: She had a complex fracture of her right ankle where there was too much swelling to operate right away, so we have to wait for the swelling to go down and we plan to operate at a facility with a surgical facility that can accomidate for this complex fracture with less risk to the patient and this hopefully by Wednesday, so I am going to send her home today with crutches, nonweightbearing right ankle and follow her and then schedule for surgery at [facility] when the swelling is down, hopefully this Wednesday, so in the meantime, she is going to stay home with leg elevated and I will contact the patient to tell her when to come for surgery, hopefully this Wednesday. FINAL DIAGNOSES: Complex right ankle fracture, pilon type intraarticular of the distal tibia and medial malleolus and lateral malleolar fracture. Royce Mccord DO [facility]
== END 2018-05-04 13:59 | disposition home or self-care (01) | DRG 563 ==
LOC: ED 08:57 → ERH 11:30 → OBSVTOIN 11:30 → ERH 13:55 → 5RNO 14:45
PROVIDERS: ADMIT Internal Medicine; ATTEND Internal Medicine
DX: S82.851A Displaced trimalleolar fracture of right lower leg, initial encounter for closed fracture (principal); S82.871A Displaced pilon fracture of right tibia, initial encounter for closed fracture; M17.10 Unilateral primary osteoarthritis, unspecified knee; M79.7 Fibromyalgia; Z98.51 Tubal ligation status; X50.1XXA Overexertion from prolonged static or awkward postures, initial encounter; W00.0XXA Fall on same level due to ice and snow, initial encounter